=== PATIENT | male | born 1975 | race Caucasian/White ===

== ENCOUNTER → 2018-03-05 | Outpatient (CLI) | payer SELFPAY ==
[2018-03-05 09:09] LABS: HEMATOCRIT 48.1 % (42.0-52.0); HEMOGLOBIN 16.1 g/dl (13.5-18.0); MEAN CELL VOLUME 88 fl (80.0-100.0); MEAN CORPUSCULAR HEMOGLOBIN 29 pg (27.0-31.0); MEAN CORPUSCULAR HGB CONC 34 g/dl (33.0-37.0); MEAN PLATELET VOLUME 10.2 fl (7.4-10.4); PLATELET COUNT 224 K/mm3 (130-400); RED BLOOD COUNT 5.48 M/mm3 (4.20-5.60); REDCELL DISTRIBUTION WIDTH-CV 13.4 % (11.5-14.5)
[2018-03-05 09:17] LABS: MUCOUS Present /lpf; PH 6 (5-8); SQUAMOUS EPITHELIAL 0-2 /hpf; URINE APPEARANCE Clear; URINE BACTERIA None Seen /hpf; URINE BILIRUBIN Negative (NEGATIVE); URINE BLOOD Negative (NEGATIVE); URINE COLOR Yellow; URINE GLUCOSE 2+ (NEGATIVE); URINE KETONE Negative (NEGATIVE); URINE LEUKOCYTE ESTERASE Negative (NEGATIVE); URINE NITRATE Negative (NEGATIVE); URINE PROTEIN(semi-quant) 1+ (NEGATIVE); URINE RBC 0-2 /hpf; URINE UROBILINOGEN Negative (NEGATIVE); URINE WBC 0-2 /hpf
[2018-03-05 09:20] LABS: ALBUMIN 4.3 gm/dL (3.5-5.0); BILIRUBIN,TOTAL 0.8 mg/dL (0.0-1.0); CALCIUM 9.3 mg/dL (8.4-10.2); CHOLESTEROL RISK RATIO 6.3; CREATININE, serum 0.83 mg/dL (0.66-1.25); POTASSIUM 4.5 mmol/L (3.4-5.0); TOTAL PROTEIN 8.6 gm/dL (6.4-8.2)
[2018-03-05 09:33] LABS: COLLECTION METHOD CLEAN CATCH
[2018-03-05 09:50] LABS: THYROID STIMULATING HORMONE 2.44 uIU/mL (0.465-4.680)
== END ==
LOC: COL.LAB 08:11
PROVIDERS: Pediatrics Adolescent Medicine
DX: I10 Essential (primary) hypertension (principal); E11.9 Type 2 diabetes mellitus without complications; E66.9 Obesity, unspecified

== ENCOUNTER 2018-04-14 16:52 | Emergency (ER) | payer SELFPAY ==
[~2018-04-14] VITALS: Ht 193 cm; Wt 168.6 kg
[2018-04-14 16:59] VITALS: TEMP 97.6
[2018-04-14] MEDS ORDERED: PRIL40 PO (17:34)
[2018-04-14] MEDS ORDERED: ZESTRIL 10MG10 MG PO (17:34)
[2018-04-14] MEDS ORDERED: LEVEMIR100 U/ML SQ (17:34)
[2018-04-14] MEDS ORDERED: DESYREL 50MG50 MG PO (17:35)
[2018-04-14] MEDS ORDERED: PROVENTIL0.09 MG/A1 IH (17:35)
[2018-04-14] MEDS ORDERED: NORCO 325 MG-101 TAB PO (17:49)
[2018-04-14 18:20] VITALS: BP 148/91; PULSE 88
== END 2018-04-14 18:22 | disposition home or self-care (01) ==
LOC: COL.ER 16:52
DX: S43.401A Unspecified sprain of right shoulder joint, initial encounter (principal); E11.9 Type 2 diabetes mellitus without complications; I10 Essential (primary) hypertension; F17.210 Nicotine dependence, cigarettes, uncomplicated; Z98.890 Other specified postprocedural states; Z79.4 Long term (current) use of insulin; Y92.59 Other trade areas as the place of occurrence of the external cause; X50.0XXA Overexertion from strenuous movement or load, initial encounter